=== PATIENT | male | born 1990 | race Caucasian/White ===

== ENCOUNTER 2019-01-24 20:55 | Emergency (ER) | payer OTHER ==
[2019-01-24 20:59] VITALS: BP 137/81; PULSE 105; TEMP 98.1; BMI 26.5
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
== END 2019-01-24 21:57 | disposition home or self-care (01) ==
LOC: JERFT 20:55
DX: S59.802A Other specified injuries of left elbow, initial encounter (principal); S80.02XA Contusion of left knee, initial encounter; S80.212A Abrasion, left knee, initial encounter; S54.02XA Injury of ulnar nerve at forearm level, left arm, initial encounter; Y35.811A Legal intervention involving manhandling, law enforcement official injured, initial encounter; W18.39XA Other fall on same level, initial encounter; Y93.89 Activity, other specified; Y92.89 Other specified places as the place of occurrence of the external cause; Y99.0 Civilian activity done for income or pay
CPT/HCPCS: 99281-25

== ENCOUNTER 2019-08-30 20:57 | Emergency (ER) | payer OTHER ==
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
[2019-08-30 21:23] VITALS: BP 138/81; PULSE 102; TEMP 98.1; BMI 25.8
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
== END 2019-08-30 23:05 | disposition home or self-care (01) ==
LOC: JERFT 20:57 → JER 20:57 → JERFT 23:05
DX: S80.01XA Contusion of right knee, initial encounter (principal); Y35.891A Legal intervention involving other specified means, law enforcement official injured, initial encounter; W18.39XA Other fall on same level, initial encounter; Y93.02 Activity, running; Y92.89 Other specified places as the place of occurrence of the external cause; Y99.0 Civilian activity done for income or pay
CPT/HCPCS: 73562-TC-RT-FY; 99281-25

== ENCOUNTER 2020-05-08 21:10 | Emergency (ER) | payer OTHER ==
[2020-05-08 21:17] VITALS: BP 130/82; PULSE 75; TEMP 97.5; BMI 26.5
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
== END 2020-05-08 21:30 | disposition home or self-care (01) ==
LOC: FER 21:10
DX: J70.5 Respiratory conditions due to smoke inhalation (principal); R05 Cough; T59.811A Toxic effect of smoke, accidental (unintentional), initial encounter
CPT/HCPCS: 99282-25

== ENCOUNTER 2021-06-17 23:47 | Emergency (ER) | payer OTHER ==
[2021-06-17 23:59] VITALS: BP 141/90; PULSE 75; TEMP 98.4; BMI 26.5
[2021-06-18] MEDS ORDERED: IBUPROFEN 600 MG TABLET (FP) PO ONE ×2 (00:07→00:15)
== END 2021-06-18 00:18 | disposition home or self-care (01) ==
LOC: FER 23:47
DX: S16.1XXA Strain of muscle, fascia and tendon at neck level, initial encounter (principal); V49.9XXA Car occupant (driver) (passenger) injured in unspecified traffic accident, initial encounter
CPT/HCPCS: 99283-25

== ENCOUNTER 2022-03-05 00:12 | Emergency (ER) | payer OTHER ==
[2022-03-05 00:23] VITALS: BP 131/94; PULSE 94; TEMP 98.6; BMI 25.8
== END 2022-03-05 01:16 | disposition home or self-care (01) ==
LOC: FER 00:12
DX: S63.502A Unspecified sprain of left wrist, initial encounter (principal); W19.XXXA Unspecified fall, initial encounter
CPT/HCPCS: 73110-TC-LT-FY; 73130-TC-LT-FY; 99283-25

== ENCOUNTER 2022-08-09 00:17 | Emergency (ER) | payer OTHER ==
[2022-08-09] MEDS ORDERED: BACITRACIN 15 GM TUBE TOPICAL OINTMENT TP ONE (00:22)
[2022-08-09] MEDS ORDERED: CEPHALEXIN MONOHYDRATE 500 MG CAPSULE (UD) PO ONE (00:22)
[2022-08-09] MEDS ORDERED: CEPHALEXIN MONOHYDRATE 500 MG CAPSULE (UD) ONE (00:24)
[2022-08-09 00:31] VITALS: BP 132/82; PULSE 87; RESP 18; TEMP 98.8; BMI 26.5
[2022-08-09] MEDS ORDERED: DIPHTH,PERTUSS(ACELL),TET 0.5 ML DISP.SYRIN IM ONE (00:50)
== END 2022-08-09 01:01 | disposition home or self-care (01) ==
LOC: FER 00:17
PROC: 3E0234Z Introduction of Serum, Toxoid and Vaccine into Muscle, Percutaneous Approach (ICD-10-PCS; principal; 2022-08-09)
DX: S50.312A Abrasion of left elbow, initial encounter (principal); S50.02XA Contusion of left elbow, initial encounter; W01.0XXA Fall on same level from slipping, tripping and stumbling without subsequent striking against object, initial encounter
CPT/HCPCS: 99284-25

== ENCOUNTER 2023-02-25 17:10 | Emergency (ER) | payer OTHER ==
[2023-02-25] MEDS ORDERED: LIDOCAINE 5% TOPICAL PATCH TP ONE (17:22)
[2023-02-25] MEDS ORDERED: IBUPROFEN 600 MG TABLET (FP) PO ONE ×2 (17:22→17:38)
[2023-02-25] MEDS ORDERED: LIDOCAINE 5% TOPICAL PATCH ONE (17:38)
[2023-02-25] MEDS ORDERED: METHOCARBAMOL 500 MG TABLET PO ONE (17:42)
[2023-02-25] MEDS ORDERED: METHOCARBAMOL 500 MG TABLET ONE (17:45)
[2023-02-25 17:54] VITALS: BP 144/93; PULSE 93; RESP 20; TEMP 98.2; BMI 26.5
[2023-02-25] MEDS ORDERED: LIDOCAINE PATCH REMOVAL MC SCH (22:00)
== END 2023-02-25 18:32 | disposition home or self-care (01) ==
LOC: FER 17:10
DX: M54.2 Cervicalgia (principal); S13.9XXA Sprain of joints and ligaments of unspecified parts of neck, initial encounter; X58.XXXA Exposure to other specified factors, initial encounter
CPT/HCPCS: 99283-25

== ENCOUNTER 2023-09-10 18:37 | Emergency (ER) | payer OTHER ==
[2023-09-10 19:21] VITALS: BP 130/91; PULSE 84; RESP 20; TEMP 98; BMI 27.3
[2023-09-10] MEDS ORDERED: IBUPROFEN 600 MG TABLET (FP) PO ONE ×2 (19:27→19:37)
== END 2023-09-10 19:59 | disposition home or self-care (01) ==
LOC: FER 18:37
DX: S63.501A Unspecified sprain of right wrist, initial encounter (principal); X50.9XXA Other and unspecified overexertion or strenuous movements or postures, initial encounter; Y99.0 Civilian activity done for income or pay
CPT/HCPCS: 73110-TC-RT-FY; 99283-25